=== PATIENT | male | born 1950 | race Caucasian/White ===

== ENCOUNTER 2023-12-12 13:44 | Outpatient (OUT) | payer MEDICARE, SELFPAY ==
--- NOTE | 2023-12-12 13:50 | CA_ITS ---
Patient Name: ABEL JUAREZ MR#: [id number] : 1950 Exam Date: 12/12/2023 Ordering Doctor: LUCILA GROSS CNP ECHOCARDIOGRAM REPORT PROCEDURE: CA ECHO DOPPLER COMPLETE INDICATIONS: Heart failure with reduced ejection fraction COMPARISON: None. DESCRIPTION: COMPLETE ECHOCARDIOGRAM Real-time transthoracic echocardiography with 2D, M-mode, spectral and color flow Doppler performed. QUALITY: Technical quality was good. LEFT VENTRICLE: Severely dilated. Mildly thickened septal wall. Visual estimation of left ventricular ejection fraction is severely decreased at 15-20%.in addition to global hypokinesis, the apex and mid septum appear akinetic LV EF: DIASTOLIC: Grade I diastolic dysfunction ATRIAL SEPTUM: LEFT ATRIUM: Moderate dilatation. RIGHT ATRIUM: Normal chamber size. RIGHT VENTRICLE: Normal chamber size. Normal right ventricular systolic function. Pacer wire present. TRICUSPID VALVE: Normal mobility and thickness. No stenosis with trivial regurgitation. No evidence of pulmonary hypertension.RVSP 20mmHg MITRAL VALVE: Normal mobility and thickness. No evidence of mitral valve stenosis. Mild mitral annular calcification. Mild to moderate mitral regurgitation. AORTIC VALVE: Normal trileaflet appearance. No visible sclerosis. Normal leaflet mobility. No evidence of aortic valve stenosis. No aortic regurgitation. AORTIC ROOT: Normal diameter and appearance. PULMONIC VALVE: Normal thickness and mobility. No stenosis. Trivial regurgitation. PERICARDIUM: No evidence of pericardial effusion. IVC: Collapes with inspirations. Normal size. PLEURA: CONCLUSION: Severely dilated left ventricle. Mildly thickened septal wall. Visual estimation of left ventricular ejection fraction is severely decreased at 15-20%.in addition to global hypokinesis, the apex and mid septum appear akinetic Grade I diastolic dysfunction Moderately dilated left atrium. Mild to moderate mitral regurgitation Pacer wire present in right cardiac chambers Adult Echocardiography Procedure Report Left Ventricle LVEDD (3.7 - 5.6 cm): 7.15 cm LVESD (2.2 - 4.0 cm): 6.47 cm LVIVS thickness (0.6 - 1.2 cm): 1.31 cm LVPW thickness (0.5 - 1.0 cm): 0.70 cm e': 0.06 m/s E - e': 11.38 LVOT Max Gradient: 1.48 mm[Hg] LVOT Area (cm2): 0.61 m/s Peak Velocity (LVOT): 0.61 m/s Mean Velocity (LVOT): 0.41 m/s LVOT Diameter 2.38 cm Left Ventricular Ejection Fraction: 15-20% Left Atrium LA Volume Index (2D A2C): 43.29 ml/m2 Left Atrium Systolic Dimension: 5.51 cm Mitral Valve MV E to A Ratio: 0.78 Mitral Valve A-Wave Peak Velocity: 0.85 m/s Mitral Valve E-Wave Peak Velocity: 0.67 m/s Right Ventricle RV Internal Diastolic Dimension: 3.12 cm Aorta AO Root Diam: 3.49 cm Ascending Ao Diam: 3.20 cm Aortic Valve AoV Area (Peak Oleg): 2.98 cm2, 2.98 cm2 AoV Area (VTI): 3.04 cm2, 3.04 cm2 Peak Velocity(Antegrade Flow): 0.91 m/s Peak Gradient(Antegrade Flow): 3.31 mm[Hg] Mean Velocity(Antegrade Flow): 0.62 m/s Mean Gradient(Antegrade Flow): 1.72 mm[Hg] Velocity Time Integral: 17.33 cm Tricuspid Valve Peak Velocity (Regurgitant Flow): 1.84 m/s, 1.98 m/s Pulmonic Valve Mean Gradient: 2.01 mm[Hg], 2.12 mm[Hg] Mean Velocity: 0.66 m/s, 0.68 m/s Peak Velocity: 0.93 m/s Peak Gradient: 3.34 mm[Hg], 3.58 mm[Hg] Right Atrium Right Atrium Systolic Pressure: 43.44 ml, 43.44 ml Dictated by: Gerardo Aguayo MD on 12/12/2023 at 17:53 Approved by: Gerardo Aguayo MD on 12/12/2023 at 18:08
== END 2023-12-12 13:45 | disposition home or self-care (01) ==
PROVIDERS: PCP Family Medicine; Visit Provider Nurse Practitioner Family
DX: I50.22 Chronic systolic (congestive) heart failure (principal)
CPT/HCPCS: 93306; 93356